=== PATIENT | male | born 1970 | race Caucasian/White ===

== ENCOUNTER 2022-04-05 13:30 | Outpatient (CLI) | payer BC, OTHER, SELFPAY ==
[2022-04-05 17:22] LABS: Albumin* 3.9 g/dL (3.3-5.0); Chloride* 100 mmol/L (96-114)
[2022-04-05 17:23] LABS: Potassium* 4.7 mmol/L (3.6-5.1); Sodium* 136 mmol/L (135-149)
[2022-04-05 17:25] LABS: Aspartate Amino Transferase* 32 U/L (12-35); Bilirubin Total* 0.4 mg/dL (0.1-1.5); Creatinine* 0.8 mg/dL (0.5-1.5); Estimated Glomerular Filt Rate 106 ml/min; Total Protein* 6.6 g/dL (6.0-8.3)
[2022-04-05 17:26] LABS: Alanine Aminotransferase* 36 U/L (4-50); Alkaline Phosphatase* 111 U/L (40-150); Blood Urea Nitrogen* 19 mg/dL (7-30); Calcium* 9.9 mg/dL (8.4-10.6); Glucose* 108 mg/dL (60-115)
[2022-04-05 17:42] LABS: Carbon Dioxide* 26 mmol/L (20-32)
== END 2022-04-05 13:31 | disposition home or self-care (01) ==
LOC: NFLDREF 13:32
PROVIDERS: PCP Internal Medicine; Visit Provider Internal Medicine
DX: B39.9 Histoplasmosis, unspecified (principal); E11.9 Type 2 diabetes mellitus without complications; E78.5 Hyperlipidemia, unspecified; M10.9 Gout, unspecified; I10 Essential (primary) hypertension
CPT/HCPCS: 80053

== ENCOUNTER 2022-09-15 10:05 | Outpatient (CLI) | payer BC, SELFPAY ==
[2022-09-15 13:33] LABS: Albumin* 4.5 g/dL (3.3-5.0); Chloride* 101 mmol/L (96-114); Sodium* 138 mmol/L (135-149)
[2022-09-15 13:34] LABS: Potassium* 4.3 mmol/L (3.6-5.1)
[2022-09-15 13:35] LABS: Cholesterol* 259 mg/dL (90-199)
[2022-09-15 13:36] LABS: Alanine Aminotransferase* 24 U/L (4-50); Alkaline Phosphatase* 51 U/L (40-150); Aspartate Amino Transferase* 26 U/L (12-35); Bilirubin Total* 1.1 mg/dL (0.1-1.5); Blood Urea Nitrogen* 18 mg/dL (7-30); Carbon Dioxide* 30 mmol/L (20-32); Creatinine* 0.9 mg/dL (0.5-1.5); Estimated Glomerular Filt Rate 102 ml/min; Glucose* 105 mg/dL (60-115); Total Protein* 7.2 g/dL (6.0-8.3); Triglycerides* 216 mg/dL (40-149)
[2022-09-15 13:37] LABS: Calcium* 9.7 mg/dL (8.4-10.6); HDL Cholesterol* 50 mg/dL (>=40); LDL Cholesterol Calculated 166 mg/dL (<100)
[2022-09-15 13:58] LABS: Microalbumin Creatinine Ratio 0 mg/g (0-30); Microalbumin Urine < 1 mg/dL
== END 2022-09-15 10:06 | disposition home or self-care (01) ==
PROVIDERS: PCP Internal Medicine; Visit Provider Internal Medicine
DX: E78.5 Hyperlipidemia, unspecified (principal); E11.9 Type 2 diabetes mellitus without complications; I10 Essential (primary) hypertension; M10.9 Gout, unspecified; Z12.5 Encounter for screening for malignant neoplasm of prostate
CPT/HCPCS: 80053; 80061; 82043; 82570; 84153

== ENCOUNTER 2023-03-17 09:13 | Outpatient (CLI) | payer BC, OTHER, SELFPAY | END 2023-03-17 09:14 | disposition home or self-care (01) | LOC: NFLDREF 03-18 00:59 | PROVIDERS: PCP Internal Medicine; Referring Provider Internal Medicine; Visit Provider Internal Medicine | DX: Z00.00 Encounter for general adult medical examination without abnormal findings (principal); E11.9 Type 2 diabetes mellitus without complications; E78.5 Hyperlipidemia, unspecified; I10 Essential (primary) hypertension; M10.9 Gout, unspecified; Z12.5 Encounter for screening for malignant neoplasm of prostate | CPT/HCPCS: 80053; 80061; 82043; 82570; 84153 ==

== ENCOUNTER 2023-11-24 08:36 | Outpatient (CLI) | payer BC, OTHER, SELFPAY ==
--- OUTSIDE RECORDS SUMMARY | 2023-12-01 07:43 | XMS_ITS | Encounter Summary ---
Author Name Unknown Organization [place] Address [address] [place] [address] Care Team Providers Care Lifestyle Consultant Name Role Phone Ky Sears MD Primary Care Provider Jose Slaughter MD Unavailable + Encounter Details Date Type Department Care Team (Late st Contact Info) Description 07/11/[address] [facility] [place] [address] Audrey Peña pulmonary blastomycosis (H); Therapeutic drug monitoring Social History Tobacco Use Types Packs/Day Years Used Date Smoking Tobacco: Never Smokeless Tobacco: Never Alcohol Use Standard Drinks/Week Comments Yes 0 (1 standard drink = 0.6 oz pur e alcohol) social to rare PHQ-2 Answer Date Recorded PHQ-2 Score 0 04/08/2021 Sex and Gender Information Value Date Recorded Sex Assigned at Male 05/05/2022 1:30 PM CDT Gender Identity Male 05/05/2022 1:30 PM CDT Sexual Orientation Straight 05/05/2022 1: 30 PM CDT COVID-19 Exposure Response Date Recorded In the last 10 days, have yo u been in contact with someone who was confirmed or suspected to have Coronavirus/COVID-19? No / Unsure 07/11/2022 8:14 AM PROCUREMENT SPECIALIST documented as of this encounter Plan of Treatment Not on file documented as of this encounter Procedures Procedure Name Priority Date/Time Associated Diagnosis Comments VORICONAZOLE LEVEL Routine 07/11/2022 8: 45 AM PROCUREMENT SPECIALIST [place] pulmonary blastomycosis (H) Therapeutic drug monitoring LIPID PROFILE Routine 07/11/2022 8:45 AM PROCUREMENT SPECIALIST [place] pulmonary blastomycosis (H) Therapeutic drug monitoring HEMOGLOBIN A1C Routine 07/11/2022 8:45 AM PROCUREMENT SPECIALIST [place] pulmonary blastomycosis (H) Therapeutic drug monitoring documented in this encounter Results * (ABNORMAL) Lipid Profile (07/11/2022 8:45 AM PROCUREMENT SPECIALIST) Cholesterol 203(H) <=199 mg/dL 07/11/2022 10:45 AM [facility] Triglycerides 98 <=149 mg/dL 07/11/2022 10:[address] [facility] Direct Measure HDL 67 >=40 mg/dL 07/11/2022 10:45 AM [facility] Comment: HDL Cholesterol Reference Range: 0-2 years: No reference ranges established for patients under 2 years old ??at [facility] for lipid analytes. 2-8 years: Greater than 45 mg/dL 18 years and older: Female: Greater than or equal to 50 mg/dL Male: ?? Greater than or equal to 40 mg/dL LDL Cholesterol Calculated 116 <=129 mg/dL 07/11/2022 10:45 AM [facility] Patient Fasting > 8hrs? Yes 07/11/2022 10:45 AM [facility] Blood STRUCTURE OF LEFT UPPER LIMB / Unknown Venipuncture / Unknown 07/11/2022 8:45 AM PROCUREMENT SPECIALIST 07/11/2022 8:46 AM PROCUREMENT SPECIALIST Yunior Wayne MD LAB - BLOOD ORDERABL ES [facility] [address] [place] [address], [facility] [phone] * Hemoglobin A1c (07/11/2022 8:45 AM PROCUREMENT SPECIALIST) Hemoglobin A1C 5.4 <5.7 % 07/11/2022 11:45 AM [facility] Comment: Normal <5.7% Prediabetes 5.7-6.4% ?? Diabetes 6.5% or higher Note: Adopted from ADA consensus guidelines. Blood STRUCTURE OF LEFT UPPER LIMB / Unknown Venipuncture / Unknown 07/11/2022 8:45 AM PROCUREMENT SPECIALIST 07/11/2022 8:46 AM PROCUREMENT SPECIALIST Yunior Wayne MD LAB - BLOOD ORDERABL ES N LABORATORY [facility] [address] [place] [address], [facility] [phone] * (ABNORMAL) Voriconazole Level (07/11/2022 8:45 AM PROCUREMENT SPECIALIST) Voriconazole <0.1(L) 1.0 - 5.5 ug/mL 07/12/2022 1:16 PM PROCUREMENT SPECIALIST [facility] Blood STRUCTURE OF LEFT UPPER LIMB / Unknown Venipuncture / Unknown 07/11/2022 8:45 AM PROCUREMENT SPECIALIST 07/11/2022 8:46 AM PROCUREMENT SPECIALIST Yunior Wayne MD LAB - BLOOD ORDERABL ES [facility] [address] [phone], [facility] [phone] documented in this encounter Visit Diagnoses Diagnosis [place] pulmonary blastomycosis (H24) Blastomycosis Therapeutic drug monitoring Encounter for therapeutic drug monitoring documented in this encounter Care Teams Lifestyle Consultant Relationship Specialty Start Date End Date Ky Sears MD [facility] [address] [place] [address] PCP - General Emergency Medicine 04/05/21 Jose Slaughter MD [address] [place] [address] Assigned Musculoskeletal Provider 04/11/21 10/14/22 documented as of this encounter
--- OUTSIDE RECORDS SUMMARY | 2023-12-01 07:43 | XMS_ITS | Referral Summary ---
Author Name Unknown Organization [place] Address [address] [place] [id number] Care Team Providers Care Inspector Brake Lining Name Role Phone Ky Sears MD Primary Care Provider Encounters Date Type Department Care Team Description 11/03/2023 Travel 11/03/2023 9:15 AM CDT Lab [facility] [place] [address] Pulmonary blastomycosis, unspecified (H24) (Primary Dx) 10/20/2023 Telephone [facility] [address] [place] [address] Anthony Oates MD from Last 3 Months Allergies Active Allergy Reactions Criticality Noted Date Comments Allopurinol Unknown 12/30/2009 Stomach cramping Other reaction(s): *Unknown Stomach cramping Stomach cramping Penicillin V 06/17/2009 Airway closed up Has tolerated ceftriaxone Medications Medication Sig Dispensed Refills Start Date End Date Status febuxostat (ULORIC) 40 MG TABSIndications:Gout Take 1 tablet by mouth daily. 30 tablet 0 02/13/2012 Active sertraline (ZOLOFT) 50 MG tablet Take 50 mg by mouth daily 03/22/2021 Active [place]-3 Fatty Acids (FISH OIL PO) Take 1,000 mg by mouth daily (with lunch) Active Multiple Vitamin (ONE-A-DAY MENS PO) Take 1 tablet by mouth daily (with lunch) Active metFORMIN (GLUCOPHAGE) 500 MG tablet Take 500 mg by mouth 2 times daily (with meals) Active amLODIPine (NORVASC) 5 MG tabletIndications:Pneu monia of both lungs due to infectious organism, unspecified part of lung Take 1 tablet (5 mg) by mouth daily 30 tablet 6 03/29/2022 Active itraconazole (SPORANOX) 10 MG/ML solutionIndications:Bl astomycosis Take 20 mLs (200 mg) by mouth 2 times daily 1200 mL 05/29/2023 Active Active Problems Problem Noted Date Diagnosed Date Bilateral pleural effusion 05/25/2023 Pneumonia due to infectious organism, unspecified laterality, unspecified part of lung 05/25/2023 Pericardial effusion 05/25/2023 Failure of outpatient treatment 03/07/2022 Pneumonia of both lungs due to infectious organism, unspecified part of lung 03/07/2022 Hypertension goal BP (blood pressure) < 140/90 0 11/16/2010 HYPERLIPIDEMIA LDL GOAL <130 06/13/2010 Gout 08/29/2009 Resolved Problems Problem Noted Date Diagnosed Date Resolved Date Dyslipidemia 07/27/2010 Immunizations Name Administration Dates Next Due COVID-19 Bivalent 18+ (Moderna) 06/18/2022 COVID-19 Monovalent 18+ (Moderna) 12/20/2020,06/2021 Influenza Vaccine >6 months,quad, PF 06/18/2022 TD,PF 7+ (Tenivac) 06/17/2004 Social History Tobacco Use Types Packs/Day Years Used Date Smoking Tobacco: Never Smokeless Tobacco: Never Alcohol Use Standard Drinks/Week Comments Yes 0 (1 standard drink = 0.6 oz pur e alcohol) social to rare PHQ-2 Answer Date Recorded PHQ-2 Score 0 04/08/2021 Adolescent Education Answer Date Record ed Getting School Help Needed Not on file 05/13 Sex and Gender Information Value Date Recorded Sex Assigned at Male 05/05/2022 1:30 PM CDT Gender Identity Male 05/05/2022 1:30 PM CDT Sexual Orientation Straight 05/05/2022 1: 30 PM CDT Last Filed Vital Signs Vital Sign Reading Time Taken Comments Blood Pressure 114/80 05/29/2023 6:05 AM CDT Pulse 75 05/29/2023 6:05 AM CDT Temperature 36.7 ??C (98 ??F) 05/29/2023 6:05 AM CDT Respiratory Rate 20 05/29/2023 6:05 AM CDT Oxygen Saturation 97% 05/29/2023 6:05 AM CDT Inhaled Oxygen Concentration - - Weight 93.3 kg (205 lb 11 oz) 05/25/2023 4:16 PM CDT Height 182.9 cm (6') 05/27/2023 11:04 AM CDT Body Mass Index 27.9 05/25/2023 4:16 PM CDT Plan of Treatment Not on file Procedures Procedure Name Priority Date/Time Associated Diagnosis Comments HEPATIC FUNCTION PANEL Routine 11/03/2023 9:15 AM CDT Pulmonary blastomycosis, unspecified (H24) ITRACONAZOLE AND METABOLITE Routine 11/03/2023 9:15 AM CDT Pulmonary blastomycosis, unspecified (H24) GLUCOSE BY METER Routine 05/29/2023 1:48 AM CDT BASIC METABOLIC PANEL Routine 05/28/2023 6:51 AM CDT LIPID PROFILE Routine 07/11/2022 8:45 AM 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 [place] pulmonary blastomycosis (H) Therapeutic drug monitoring HEPATITIS C SCREEN REFLEX TO HCV RNA QUANT AND GENOTYPE Routine 03/13/2022 6:33 AM CDT HIV ANTIGEN ANTIBODY COMBO Add-On 03/12/2022 7:28 AM CDT ALBUMIN RANDOM URINE QUANTITATIVE Routine 01/28/2011 8:13 AM CDT Hypertension goal BP (blood pressure) < 140/90 from Last 3 Months or Most Recently Relevant to Health Maintenance Results * Itraconazole and Metabolite (11/03/2023 9:15 AM CDT) Itracanazole 1.5 0.5 - 5.0 ug/mL 11/06/2023 12:39 PM CDT [facility] Hydroxyitraconazole 2.5 ug/mL 11/05 12:39 PM CDT [facility] Comment: No therapeutic range is established for hydroxyitraconazole. Hydroxyitraconazole is an active metabolite that has comparable activity to the parent drug itraconazole. Itraconazole and Metabolite Total 4.0 <=10.0 ug/mL 11/06/2023 12:39 PM CDT [facility] Comment:The clinical practic e guidelines for the management of blastomycosis by the Infectious Diseases Society of [place] recommends that combined itraconazole and hydroxyitraconazole concentrations should not exceed 10 ug/mL due to potential toxicity. Blood BLOOD SPECIMEN / Unknown Venipuncture / Unknown 11/03/2023 9:15 AM CDT 11/03/2023 9:15 AM CDT Narrative [facility] - 11/06/2023 12:39 PM CDT This test was developed and its performance characteristics determined by the [facility], ??Special Chemistry Laboratory. It has not been cleared or approved by the FDA. The laboratory is regulated under CLIA as qualified to perform high-complexity testing. This test is used for clinical purposes. It should not be regarded as investigational or for research. Yunior Wayne MD LAB - BLOOD ORDERABL ES [facility] Special Drug/[facility] [address] [facility], [address] [place] [address] * Hepatic function panel (11/03/2023 9:15 AM CDT) [facility] Protein Total 6.6 6.4 - 8.3 g/dL 11/03/2023 9:36 AM CDT [facility] Albumin 4.3 3.5 - 5.2 g/dL 11/03/2023 9:36 AM CDT [facility] Bilirubin Total 1.1 <=1.2 mg/dL 11/03/2023 9:36 AM CDT [facility] Alkaline Phosphatase 78 40 - 150 U/L 11/03/2023 9:36 AM CDT [facility] Comment:Reference intervals for this test were updated on 06/27/2023 to more accurately reflect our healthy population. There may be differences in the flagging of prior results with similar values performed with this method. Interpretation of those prior results can be made in the context of the updated reference intervals. AST 17 0 - 45 U/L 11/03/2023 9:36 AM CDT [facility] Comment:Reference intervals for this test were updated on 01/23/2023 to more accurately reflect our healthy population. There may be differences in the flagging of prior results with similar values performed with this method. Interpretation of those prior results can be made in the context of the updated reference intervals. ALT 10 0 - 70 U/L 11/03/2023 9:36 AM CDT [facility] Comment:Reference intervals for this test were updated on 01/23/2023 to more accurately reflect our healthy population. There may be differences in the flagging of prior results with similar values performed with this method. Interpretation of those prior results can be made in the context of the updated reference intervals. Bilirubin Direct 0.23 0.00 - 0.30 mg/dL 11/03/2023 9:36 AM CDT [facility] Blood BLOOD SPECIMEN / Unknown Venipuncture / Unknown 11/03/2023 9:15 AM CDT 11/03/2023 9:15 AM CDT Yunior Wayne MD LAB - BLOOD ORDERABL ES [facility] [address] [place] [address], [place] * Glucose by meter (05/29/2023 1:48 AM CDT) [facility] GLUCOSE BY METER POCT 98 70 - 99 mg/dL 05/29/2023 1:55 AM CDT LABORATORY POC Blood, Capillary BLOOD SPECIMEN / Unknown 05/29/2023 1:48 AM CDT 05/29/2023 1:55 AM CDT Jonh Sinclair MD LAB - BEAKER POCT LABORATORY POC [facility] [address] [facility] Lab (1st floor, no room number) [place] [address], [place] [phone] * (ABNORMAL) Basic metabolic panel (05/28/2023 6:51 AM CDT) Sodium 137 135 - 145 mmol/L 05/28/2023 7:38 AM CDT LABORATORY Comment:Reference intervals for this test were updated on 05/09/2023 to more accurately reflect our healthy population. There may be differences in the flagging of prior results with similar values performed with this method. Interpretation of those prior results can be made in the context of the updated reference intervals. Potassium 3.9 3.4 - 5.3 mmol/L 05/28/2023 7:38 AM CDT LABORATORY Chloride 99 98 - 107 mmol/L 05/28/2023 7:38 AM CDT LABORATORY Carbon Dioxide (CO2) 26 22 - 29 mmol/L 05/28/2023 7:38 AM CDT LABORATORY Anion Gap 12 7 - 15 mmol/L 05/28/2023 7:38 AM CDT LABORATORY Urea Nitrogen 9.4 6.0 - 20.0 mg/dL 05/28/2023 7:38 AM CDT LABORATORY Creatinine 0.91 0.67 - 1.17 mg/dL 05/28/2023 7:38 AM CDT LABORATORY GFR Estimate >90 >60 mL/min/1. 73m2 05/28/2023 7:38 AM CDT LABORATORY Calcium 9.5 8.6 - 10.0 mg/dL 05/28/2023 7:38 AM CDT LABORATORY Glucose 119(H) 70 - 99 mg/dL 05/28/2023 7:38 AM CDT LABORATORY Blood STRUCTURE OF RIGHT UPPER LIMB / Unknown Venipuncture / Unknown 05/28/2023 6:51 AM CDT 05/28/2023 7:14 AM CDT Abiodun Quinonez MD LAB - BLOOD ORDERABL ES LABORATORY [facility] [address] [facility] Lab (1st floor, no room number) [place] [address], [facility] [phone] * (ABNORMAL) Lipid Profile (07/11/2022 8:45 AM 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) Cholesterol 203(H) <=199 mg/dL 07/11/2022 10:45 AM [facility] Triglycerides 98 <=149 mg/dL 07/11/2022 10:45 AM [facility] Direct Measure HDL 67 >=40 mg/dL 07/11/2022 10:45 AM [facility] Comment: HDL Cholesterol Reference Range: 0-2 years: No reference ranges established for patients under 2 years old ??at [facility] for lipid analytes. 2-8 years: Greater than 45 mg/dL 18 years and older: Female: Greater than or equal to 50 mg/dL Male: ?? Greater than or equal to 40 mg/dL LDL Cholesterol Calculated 116 <=129 mg/dL 07/11/2022 10:45 AM [facility] Patient Fasting > 8hrs? Yes 07/11/2022 10:45 AM [facility] Blood STRUCTURE OF LEFT UPPER LIMB / Unknown Venipuncture / Unknown 07/11/2022 8:45 AM 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 07/11/2022 8:46 AM 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 Yunior Wayne MD LAB - BLOOD ORDERABL ES [facility] [address] [place] [address], [facility] [phone] * Hepatitis C Screen Reflex to HCV RNA Quant and Genotype (03/13/2022 6:33 AM CDT) Hepatitis C Antibody Nonreactive Nonreactive 03/14/2022 9:13 AM CDT [facility] DO Blood STRUCTURE OF LEFT UPPER LIMB / Unknown Venipuncture / Unknown 03/13/2022 6:33 AM CDT 03/13/2022 7:02 AM CDT Narrative [facility]O - 03/14/2022 9:13 AM CDT Assay performance characteristics have not been established for newborns, infants, and children. Vianey Abreu MD LAB - BLOOD ORDER JANIYA [facility]/ENDO [facility] Core/Prot/Endo [address] [facility] [address] [facility], [address] [phone] * HIV Antigen Antibody Combo (03/12/2022 7:28 AM CDT) HIV Antigen Antibody Combo Nonreactive Nonreactive 03/14/2022 9:24 AM CDT SPECIALTY CORE/PROT/EN DO Comment:HIV-1 p24 Ag & HIV-1 /HIV-2 Ab Not Detected Blood STRUCTURE OF LEFT UPPER LIMB / Unknown Venipuncture / Unknown 03/12/2022 7:28 AM CDT 03/12/2022 8:00 AM CDT Vianey Abreu MD LAB - BLOOD ORDER JANIYA SPECIALTY CORE/PROT/ENDO Specialty Core/Prot/Endo [address] [facility] [address] [facility], [address] [phone] * Microalbumin quantitative random urine (01/28/2011 8:13 AM CDT) Creatinine Urine 160 mg/dL [facility] Albumin Urine mg/L 2 mg/L [facility] Albumin Urine mg/g Cr 1.25 0 - 20 mg/g Cr [facility] Urine specimen (specimen) 01/28/2011 8:13 AM CDT 01/28/2011 8:14 AM CDT Irena Garcia PA-C LAB - UR INE ORDERABLES [facility] from Last 3 Months or Most Recently Relevant to Health Maintenance Advance Directives For more information, please contact: [phone] * Full Code (Latest Code Status on File) Date Activated Date Inactivated Comments 05/25/2023 7:28 PM 05/29/2023 4:54 PM All basic and advanced life-sustaining interventions are performed as appropriate Question Answer Comments Code status determined by: Discussion with kiersten nt/ legal decision maker * Full Code Date Activated Date Inactivated Comments 03/07/2022 11:08 PM 03/28/2022 7:54 PM All basic a nd advanced life-sustaining interventions are performed as appropriate Question Answer Comments Code status determined by: Discussion with saidae nt/ legal decision maker Care Teams Inspector Brake Lining Relationship Specialty Start Date End Date Ky Sears MD [facility] [address] [place] [address] PCP - General Emergency Medicine 04/05/21
--- OUTSIDE RECORDS SUMMARY | 2023-12-01 07:43 | XMS_ITS | Encounter Summary ---
Author Name Unknown Organization [facility] Address [address] [place] [address] Phone Care Team Providers Care Mold Chipper Name Role Phone Ky Georges MD Primary Care Provider [phone] Reason for Visit * Reason Comments pulmonary blasto Encounter Details Date Type Department Care Team (Latest Contact Info) Description 11/28/2023 10:40 AM MDT Office Visit [facility] [address] [place], [place] [phone] Yunior Patel MD [address] [facility] [address] [place], [place] [phone] Chronic pulmonary blastomycosis (CMS-HCC) (Primary Dx) Social History Tobacco Use Types Packs/Day Years Used Date Smoking Tobacco: Never Smokeless Tobacco: Never Tobacco Cessation:Counseling Given: Not Answered Alcohol Use Standard Drinks/Week Comments Yes 0 (1 standard drink = 0.6 oz pur e alcohol) 4-5 drinks per week Sex and Gender Information Value Date Recorded Sex Assigned at Not on file Gender Identity Not on file Sexual Orientation Not on file documented as of this encounter Last Filed Vital Signs Vital Sign Reading Time Taken Comments Blood Pressure 128/79 11/28/2023 10:41 AM CDT Pulse 75 11/28/2023 10:41 AM CDT Temperature 37.1 ??C (98.8 ??F) 11/28/2023 10:41 AM C DT Respiratory Rate - - Oxygen Saturation - - Inhaled Oxygen Concentration - - Weight 91.6 kg (202 lb) 11/28/2023 10:41 AM CDT Height - - Body Mass Index 27.4 06/20/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 Primary care physician : KY GEORGES MD Referring Physician : No care manufacturing team member to display Date of consult : 11/29/23 Subjective History of Present Illness: Akhil Hess is a 52 y.o. male presenting with Follow-up visit with his presumed blastomycosis. Patient is generally done well over the last several months. Tolerated the itraconazole without obvious side effects or problems. Has had labs done and the levels were in the normal range and no LFT abnormalities. He is developed a bit of reflux recently and some slight fatigue. Does not have any significant respiratory symptoms or cough. Had a follow-up CT scan that looked excellent.. Review of Systems Constitutional: Slight fatigue recently in the last week without other symptoms. No respiratory symptoms. Some reflux symptoms intermittently. Current Outpatient Medications Medication Sig Dispense Refill amLODIPine (NORVASC) 5 MG tablet Take 5 mg by mouth daily aspirin 81 MG chewable tablet Chew 81 mg 1 (one) time each day Febuxostat (ULORIC) 40 MG tablet Take 40 mg by mouth daily itraconazole (SPORANOX) 100 MG capsule Take 2 capsules (200 mg total) by mouth in the morning and 2capsules (200 mg total) in the evening. 360 capsule 0 metFORMIN (GLUCOPHAGE) 500 MG tablet Take 500 mg by mouth 2 times daily MULTIPLE VITAMIN PO Take 1 tablet by mouth in the morning. sertraline (ZOLOFT) 50 MG tablet Take 50 mg by mouth daily No current facility-administered medications for this visit. Patient Active Problem List Diagnosis Gout Hyperlipidemia Hypertensive disorder Infective pneumonia Acute bronchitis Chronic sinusitis Diabetes mellitus ([facility]-H[facility]) Disorder of nasal sinus Allergies Allergen Reactions Allopurinol Other reaction(s): *Unknown Stomach cramping Stomach cramping Penicillins Other reaction(s): *Unknown - Childhood Rxn Airway closed up No family history on file. Social History Tobacco Use Smoking status: Never Smokeless tobacco: Never Substance Use Topics Alcohol use: Yes Comment: 4-5 drinks per week Drug use: Never Objective BP 128/79 Pulse 75 Temp 98.8 ??F (37.1 ??C) Wt 202 lb (91.6 kg) BMI 27.40 kg/m?? BSA 2.16m?? Synopsis No data to display Physical Exam Vitals and nursing note reviewed. Constitutional: Appearance: He is well-developed and well-nourished. Comments: Looks completely well on exam no obvious abnormality Assessment/Plan IMP 1 52-year-old male, prior proven blastomycosis then recurrent symptoms late 2022 with both imaging and clinical picture suggesting recurrent blastomycosis and failure of therapy, did not prove that diagnosis with labs or culture but initiated extended itraconazole therapy which has been on withresolution of symptoms, improvement of imaging and thus presumptive diagnosis of relapsed blastomycosis remains in place REC 1 continue itraconazole at least to the 1 year gennaro, prior repeat labs again in a few months. Repeat imaging at completion of therapy but not before unless issues 2 mild reflux symptoms try to avoid acid reducing agents but if needed is far away from the itraconazole doses as possible use Tums or similar No orders of the defined types were placed in this encounter. YUNIOR PATEL MD documented in this encounter Plan of Treatment Not on file documented as of this encounter Visit Diagnoses Diagnosis Chronic pulmonary blastomycosis (CMS-HCC)- Primary documented in this encounter Care Teams Mold Chipper Relationship Specialty Start Date End Date Ky Georges MD [address] [place] [address] PCP - General 03/08/22 documented as of this encounter
--- OUTSIDE RECORDS SUMMARY | 2023-12-01 07:43 | XMS_ITS | Encounter Summary ---
Author Name Unknown Organization [facility] sanchez Address [address] [place] [address] Phone Care Team Providers Care Back Digger Operator Name Role Phone Ky Sears MD Primary Care Provider Encounter Details Date Type Department Care Team (Late st Contact Info) Description 10/16/2023 Telephone [employer] [employer] [address] [place] [address] Crystal Cross RN Social History Tobacco Use Types Packs/Day Years Used Date Smoking Tobacco: Never Smokeless Tobacco: Never Alcohol Use Standard Drinks/Week Comments Yes 0 (1 standard drink = 0.6 oz pur e alcohol) 4-5 drinks per week Sex and Gender Information Value Date Recorded Sex Assigned at Not on file Gender Identity Not on file Sexual Orientation Not on file documented as of this encounter Miscellaneous Notes * Telephone Encounter - Crystal Cross RN - 10/19/2023 10:53 AM INFECTION CONTROL PRACTITIONER Akhil called back Explained that after his last visit with Dr Wayne he had wanted some labs and a repeat CT done Akhil will go to [facility] outpatient lab at the [facility] and he would like his CT done at [facility]. Will fax the orders to those locations. Patient will be leaving the country on 10/22/23 for a week and a half He will be able to complete these when he is back in [place]. * Telephone Encounter - Crystal Cross RN - 10/16/2023 2:15 PM CST Call to patient in response to refill request from [facility] Left message on identified voicemail for Akhil to call back regarding Dr Wayne last visit notes 06/20/23 Lab, CT, and follow up visit. documented in this encounter Plan of Treatment Not on file documented as of this encounter Visit Diagnoses Not on filedocumented in this encounter Care Teams Back Digger Operator Relationship Specialty Start Date End Date Ky Sears MD [address] [place] [address] PCP - General 03/08/22 documented as of this encounter
--- OUTSIDE RECORDS SUMMARY | 2023-12-01 07:43 | XMS_ITS | Encounter Summary ---
Author Name Unknown Organization [facility] Address [address] [place] [address]. [place] [address] Care Team Providers Care Dental Coordinator Name Role Phone Ky Sears MD Primary Care Provider Jose Slaughter MD Unavailable + Encounter Details Date Type Department Care Team (Late st Contact Info) Description 04/19/2022 Orders Only [facility] [address] [place] [address] Yunior Wayne MD [facility] [address] [place] [address]. [address] [place] [address] Blastomycosis (Primary Dx) Social History Tobacco Use Types [...] suspected to have Coronavirus/COVID-19? No / Unsure 04/20/2022 8:43 AM CDT documented as of this encounter Plan of Treatment Not on file documented as of this encounter Results * Voriconazole Level (04/20/2022 8:54 AM CDT) Voriconazole 1.0 1.0 - 5.5 ug/mL 04/21/2022 10:46 AM CDT [facility] Blood STRUCTURE OF LEFT UPPER LIMB / Unknown Venipuncture / Unknown 04/20/2022 8:54 AM CDT 04/20/2022 8:55 AM CDT Yunior Wayne MD LAB - BLOOD ORDERABL ES [facility] [address] [facility], [address] [address] [phone] * AST (04/20/2022 8:54 AM CDT) AST 16 0 - 40 U/L 04/20/2022 9:20 AM CDT [facility] Blood STRUCTURE OF LEFT UPPER LIMB / Unknown Venipuncture / Unknown 04/20/2022 8:54 AM CDT 04/20/2022 8:55 AM CDT Yunior Wayne MD LAB - BLOOD ORDERABL ES [facility] [address] [facility] [place], [place] [address] [phone] * Creatinine (04/20/2022 8:54 AM CDT) Creatinine 0.81 0.70 - 1.30 mg/dL 04/20/2022 9:20 AM CDT [facility] GFR Estimate >90 >60 mL/min/1.7 3m2 04/20/2022 9:20 AM CDT [facility] Comment:Effective July 152020 eGFRcr in adults is calculated using the 2020 CKD-EPI creatinine equation which includes age and gender (Supervisor Quilting et al., NEJ, DOI: 10.1056/NLSTef4092585) Blood STRUCTURE OF LEFT UPPER LIMB / Unknown Venipuncture / Unknown 04/20/2022 8:54 AM CDT 04/20/2022 8:55 AM CDT Yunior Wayne MD LAB - BLOOD ORDERABL ES Performing Organization Address City/[facility]/ZIP Co de Phone Number [facility] [address] [place], [place] [address] [address], [facility] [phone] * (ABNORMAL) Erythrocyte sedimentation rate auto (04/20/2022 8:54 AM CDT) Erythrocyte Sedimentation Rate 23(H) 0 - 15 mm/hr 04/20/2022 9:41 AM CDT [facility] Blood STRUCTURE OF LEFT UPPER LIMB / Unknown Venipuncture / Unknown 04/20/2022 8:54 AM CDT 04/20/2022 8:55 AM CDT Yunior Wayne MD LAB - BLOOD ORDERABL ES Performing Organization Address [facility]/ZIP Co de Phone Number [facility] [address] [place] [address], [facility] [phone] * CRP inflammation (04/20/2022 8:54 AM CDT) CRP 0.4 0.0 - <0.8 mg/dL 04/20/2022 9:20 AM CDT [facility] Blood STRUCTURE OF LEFT UPPER LIMB / Unknown Venipuncture / Unknown 04/20/2022 8:54 AM CDT 04/20/2022 8:55 AM CDT Yunior Wayne MD LAB - BLOOD ORDERABL ES Performing Organization Address City/[facility]/ZIP Co de Phone Number [facility] [address] [place] [place] [address], [facility] [phone] documented in this encounter Visit Diagnoses Diagnosis Blastomycosis- Primary documented in this encounter Care Teams Dental Coordinator Relationship Specialty Start Date End Date Ky Sears MD [address] [address] PCP - General Emergency Medicine 04/05/21 Jose Slaughter MD [address] [place] [address] Assigned Musculoskeletal Provider 04/11/21 10/14/22 documented as of this encounter
--- OUTSIDE RECORDS SUMMARY | 2023-12-01 07:43 | XMS_ITS | Encounter Summary ---
Author Name Unknown Organization [place] Address [address] [place] [address] Care Team Providers Care Cooler Man Name Role Phone Ky Sears MD Primary Care Provider Encounter Details Date Type Department Care Team (Late st Contact Info) Description 11/03/2023 9:15 AM CDT Lab [facility] [place] [phone] Pulmonary blastomycosis, unspecified (H24) (Primary Dx) Social History Tobacco Use Types [...] Orientation Straight 05/05/2022 1: 30 PM CDT documented as of this encounter Plan of Treatment Not on file documented as of this encounter Procedures Procedure Name Priority Date/Time Associated Diagnosis Comments ITRACONAZOLE AND METABOLITE Routine 11/03/2023 9:15 AM CDT Pulmonary blastomycosis, unspecified (H24) HEPATIC FUNCTION PANEL Routine 11/03/2023 9:15 AM CDT Pulmonary blastomycosis, unspecified (H24) documented in this encounter Results * Itraconazole and Metabolite (11/03/2023 9:15 AM CDT) Itracanazole 1.5 0.5 - 5.0 ug/mL 11/06/2023 12:39 PM CDT [facility] Hydroxyitraconazole 2.5 ug/mL 11/05 12:39 PM CDT [facility] Comment: No therapeutic range is established for hydroxyitraconazole. Hydroxyitraconazole is an active metabolite that has comparable activity to the parent drug itraconazole. Itraconazole and Metabolite Total 4.0 <=10.0 ug/mL 11/06/2023 12:39 PM CDT [facility] Comment:The clinical practic e guidelines for the management of blastomycosis by the Infectious Diseases Society of [place] recommends that combined itraconazole and hydroxyitraconazole concentrations should not exceed 10 ug/mL due to potential toxicity. Blood BLOOD SPECIMEN / Unknown Venipuncture / Unknown 11/03/2023 9:15 AM CDT 11/03/2023 9:15 AM CDT Narrative [facility] - 11/06/2023 12:39 PM CDT This test was developed and its performance characteristics determined by the [facility], ??Special Chemistry Laboratory. It has not been cleared or approved by the FDA. The laboratory is regulated under CLIA as qualified to perform high-complexity testing. This test is used for clinical purposes. It should not be regarded as investigational or for research. Yunior Wayne MD LAB - BLOOD ORDERABL ES [facility] [address] [facility], [address] [place] [address], [facility] * Hepatic function panel (11/03/2023 9:15 AM CDT) Protein Total 6.6 6.4 - 8.3 g/dL 11/03/2023 9:36 AM CDT [facility] Albumin 4.3 3.5 - 5.2 g/dL 11/03/2023 9:36 AM CDT [facility] Bilirubin Total 1.1 <=1.2 mg/dL 11/03/2023 9:36 AM CDT [facility] Alkaline Phosphatase 78 40 - 150 U/L 11/03/2023 9:36 AM CDT [facility] Comment:Reference intervals for this test were updated on 06/27/2023 to more accurately reflect our healthy population. There may be differences in the flagging of prior results with similar values performed with this method. Interpretation of those prior results can be made in the context of the updated reference intervals. AST 17 0 - 45 U/L 11/03/2023 9:36 AM T [facility] Comment:Reference intervals for this test were updated on 01/23/2023 to more accurately reflect our healthy population. There may be differences in the flagging of prior results with similar values performed with this method. Interpretation of those prior results can be made in the context of the updated reference intervals. ALT 10 0 - 70 U/L 11/03/2023 9:36 AM T [facility] Comment:Reference intervals for this test were updated on 01/23/2023 to more accurately reflect our healthy population. There may be differences in the flagging of prior results with similar values performed with this method. Interpretation of those prior results can be made in the context of the updated reference intervals. Bilirubin Direct 0.23 0.00 - 0.30 mg/dL 11/03/2023 9:36 AM T [facility] Blood BLOOD SPECIMEN / Unknown Venipuncture / Unknown 11/03/2023 9:15 AM CDT 11/03/2023 9:15 AM CDT Yunior Wayne MD LAB - BLOOD ORDERABL ES [facility] [address] [facility] [place] [address], [facility] documented in this encounter Visit Diagnoses Diagnosis Pulmonary blastomycosis, unspecified (H24)- Primary documented in this encounter Care Teams Cooler Man Relationship Specialty Start Date End Date Ky Sears MD [facility]NOTE 3] [address] [place] [address] PCP - General Emergency Medicine 04/05/21 documented as of this encounter
--- OUTSIDE RECORDS SUMMARY | 2023-12-01 07:43 | XMS_ITS | Encounter Summary ---
Author Name Unknown Organization [place] Address [facility] [place] [address] Care Team Providers Care Marine Engine Machinist Apprentice Name Role Phone Ky Sears MD Primary Care Provider Encounter Details Date Type Department Care Team (Late st Contact Info) Description 10/20/2023 Telephone [facility] [place] [phone] [facility] [address] [place] [phone] Anthony Oates MD [address] [facility] [address] [place], [place] [address] Social History Tobacco Use Types Packs/Day Years [...] on filedocumented in this encounter Care Teams Marine Engine Machinist Apprentice Relationship Specialty Start Date End Date Ky Sears MD [facility] [address] [place] [address] PCP - General Emergency Medicine 04/05/21 documented as of this encounter
--- OUTSIDE RECORDS SUMMARY | 2023-12-01 07:43 | XMS_ITS | Encounter Summary ---
Author Name Unknown Organization [facility] Address [address] [place] [address]. [place] [address] Care Team Providers Care Comic Book Artist Name Role Phone Ky Sears MD Primary Care Provider Encounter Details Date Type Department Care Team (Latest Contact Info) Description 11/03/2023 Travel Social History Tobacco Use Types Packs/Day Years [...] on filedocumented in this encounter Care Teams Comic Book Artist Relationship Specialty Start Date End Date Ky Sears MD [facility] [address] [place] [address] PCP - General Emergency Medicine 04/05/21 documented as of this encounter
--- OUTSIDE RECORDS SUMMARY | 2023-12-01 07:43 | XMS_ITS | Clinical Summary ---
Author Name Unknown Organization [facility] Address [address] [place] [address] Care Team Providers Care Hedis Review Nurse Name Role Phone Ky Sears MD Primary Care Provider Allergies Active Allergy Reactions Criticality Noted Date [...] 50 mg by mouth daily 03/22/2021 Active [place]-3 Fatty Acids (FISH OIL PO) Take 1,000 [...] Date Diagnosed Date Resolved Date Dyslipidemia 07/27/2010 Encounters Date Type Department Care Team Description 11/03/2023 9:15 AM CDT Lab [facility] [address] [place] [address] Pulmonary blastomycosis, unspecified (H24) (Primary Dx) 11/03/2023 Travel 10/20/2023 Telephone [facility] [address] [place] [address] Anthony Oates MD from Last 3 Months Immunizations Name Administration Dates Next Due COVID-19 Bivalent 18+ (Moderna) 06/18/2022 COVID-19 Monovalent 18+ (Moderna) 12/20/2020,06/2021 Influenza Vaccine >6 months,quad, PF 06/18/2022 TD,PF 7+ (Tenivac) 06/17/2004 Family History Medical History Relation Comments Diabetes Father Heart Disease Father stroke, heart at tack at age of 68 Hypertension Father Lipids Father Eye Disorder Maternal Grandmother Hypertension Mother Lipids Mother Heart Disease Paternal Grandfather not sure ab out details Heart Disease Paternal Grandmother not sure ab out details Cancer - colorectal No family hx of Prostate Cancer No family hx of Relation Status Comments Father Alive Maternal Grandfather Maternal Grandmother Mother Alive Paternal Grandfather Paternal Grandmother Sister Alive Social History Tobacco Use Types Packs/Day Years [...] 05/25/2023 4:16 PM CDT Plan of Treatment Health Maintenance Due Date Last Done Comments ADVANCE CARE PLANNING 1968 ANNUAL REVIEW OF HM ORDERS 1968 CT COLONOGRAPHY 1968 FIT 1968 FLEX SIG 1968 sDNA (Cologuard) 1968 COLONOSCOPY 1978 COLORECTAL CANCER SCREENING 1978 YEARLY PREVENTIVE VISIT 12/30/2010 12/30/2009 MICROALBUMIN 01/29/2012 01/28/2011, 12/30/2009 ZOSTER IMMUNIZATION (1 of 2) 2018 HEPATITIS B IMMUNIZATION (2 of 2 - CpG 2-dose series) 06/14/2023 05/17/2023 LIPID 07/11/2023 07/11/2022, 01/12, 12/30/2009 PHQ-2 (once per calendar year) 2023 04/08/2021 BMP 05/28/2024 05/28/2023, 03/14, 03/27/2022, Additional history exists GLUCOSE 05/29/2026 05/29/2023, 05/14, 05/29/2023, Additional history exists DTAP/TDAP/TD IMMUNIZATION (5 - Td or Tdap) 02/17/2028 02/16/2018, 02/16/2018, 01/20/2018, Additional history exists HIV SCREENING Completed 03/12/2022 HEPATITIS C SCREENING Completed 03/13/2022 COVID-19 Vaccine Completed 05/17/2023, 12/2021, 06/18/2022, Additional history exists INFLUENZA VACCINE Completed 05/17/2023, , 06/09/2012, Additional history exists HPV IMMUNIZATION Aged Out No longer e ligible based on patient's age to complete this topic IPV IMMUNIZATION Aged Out No longer e ligible based on patient's age to complete this topic MENINGITIS IMMUNIZATION Aged Out No l onger eligible based on patient's age to complete this topic Pneumococcal Vaccine: Pediatrics (0 to 5 Years) and At-Risk Patients (6 to 64 Years) Aged Out No longer eligible based on patient's age to complete this topic RSV MONOCLONAL ANTIBODY Aged Out No l onger eligible based on patient's age to complete this topic Procedures Procedure Name Priority Date/Time Associated Diagnosis Comments HEPATIC FUNCTION PANEL Routine 11/03/2023 9:15 AM CDT Pulmonary blastomycosis, unspecified (H24) ITRACONAZOLE AND METABOLITE Routine 11/03/2023 9:15 AM CDT Pulmonary blastomycosis, unspecified (H24) GLUCOSE BY METER Routine 05/29/2023 1:48 AM CDT BASIC METABOLIC PANEL Routine 05/28/2023 6:51 AM CDT LIPID PROFILE Routine 07/11/2022 8:45 AM CASE FOLDER [place] pulmonary blastomycosis (H) Therapeutic drug monitoring HEPATITIS [...] and its performance characteristics determined by the [facility], ??Special Chemistry Laboratory. It has not been cleared or approved by the FDA. The laboratory is regulated under CLIA as qualified to perform high-complexity testing. This test is used for clinical purposes. It should not be regarded as investigational or for research. Yunior Wayne MD LAB - BLOOD ORDERABL ES [facility] Special Drug/BGEN [address] [facility], [address] [place] [address], [facility] * Hepatic function panel (11/03/2023 9:15 AM CDT) Protein Total 6.6 6.4 - 8.3 g/dL 11/03/2023 9:36 AM CDT [facility] Albumin 4.3 3.5 - 5.2 g/dL 11/03/2023 9:36 AM CDT [facility] Bilirubin Total 1.1 <=1.2 mg/dL 11/03/2023 9:36 AM CDT [facility] Alkaline Phosphatase 78 40 - 150 U/L 11/03/2023 9:36 AM CDT [facility] Comment:Reference intervals for this test were updated on 06/27/2023 to more accurately reflect our healthy population. There may be differences in the flagging of prior results with similar values performed with this method. Interpretation of those prior results can be made in the context of the updated reference intervals. AST 17 0 - 45 U/L 11/03/2023 9:36 AM CDT [facility] Comment:Reference intervals for this test were updated on 01/23/2023 to more accurately reflect our healthy population. There may be differences in the flagging of prior results with similar values performed with this method. Interpretation of those prior results can be made in the context of the updated reference intervals. ALT 10 0 - 70 U/L 11/03/2023 9:36 AM T [facility] Comment:Reference intervals for this test were updated on 01/23/2023 to more accurately reflect our healthy population. There may be differences in the flagging of prior results with similar values performed with this method. Interpretation of those prior results can be made in the context of the updated reference intervals. Bilirubin Direct 0.23 0.00 - 0.30 mg/dL 11/03/2023 9:36 AM CDT [facility] Blood BLOOD SPECIMEN / Unknown Venipuncture / Unknown 11/03/2023 9:15 AM CDT 11/03/2023 9:15 AM CDT Yunior Wayne MD LAB - BLOOD ORDERABL ES [facility] [address] [facility] [place] [address], [facility] * Glucose by meter (05/29/2023 1:48 AM CDT) [facility] GLUCOSE BY METER POCT 98 70 - 99 mg/dL 05/29/2023 1:55 AM CDT LABORATORY POC Blood, Capillary BLOOD SPECIMEN / Unknown 05/29/2023 1:48 AM CDT 05/29/2023 1:55 AM CDT Jonh Sinclair MD [facility] Acute Care Lab [address] Lab (1st floor, no room number) [place] [address], [facility] [phone] * (ABNORMAL) Basic metabolic panel (05/28/2023 6:51 AM CDT) [facility] Sodium 137 135 - 145 mmol/L 05/28/2023 7:38 AM CDT [facility] LABORATORY Comment:Reference intervals for this test were [...] 6:51 AM CDT 05/28/2023 7:14 AM CDT Aboidun Quinonez MD LAB - BLOOD ORDERABL ES LABORATORY [facility] Acute Care Lab [address] [facility] Lab (1st floor, no room number) [place] [address], [facility] [phone] * (ABNORMAL) Lipid Profile (07/11/2022 8:45 AM CASE FOLDER) Cholesterol 203(H) <=199 mg/dL 07/11/2022 10:45 AM CASE FOLDER [facility] Triglycerides 98 <=149 mg/dL 07/11/2022 10:45 AM CASE FOLDER [facility] Direct Measure HDL 67 >=40 mg/dL 07/11/2022 10:45 AM [facility] Comment: HDL Cholesterol Reference Range: 0-2 years: No reference ranges established for patients under 2 years old ??at [facility] Laboratories for lipid analytes. 2-8 years: Greater than 45 mg/dL 18 years and older: Female: Greater than or equal to 50 mg/dL Male: ?? Greater than or equal to 40 mg/dL LDL Cholesterol Calculated 116 <=129 mg/dL 07/11/2022 10:45 AM [facility] Patient Fasting > 8hrs? Yes 07/11/2022 10:45 AM [facility] Blood STRUCTURE OF LEFT UPPER LIMB / Unknown Venipuncture / Unknown 07/11/2022 8:45 AM CASE FOLDER 07/11/2022 8:46 AM CASE FOLDER Yunior Wayne MD LAB - BLOOD ORDERABL ES [facility] [address] [facility] [place] [address], [facility] [phone] * Hepatitis C Screen Reflex to HCV RNA Quant and Genotype (03/13/2022 6:33 AM CDT) Hepatitis C Antibody Nonreactive Nonreactive 03/14/2022 9:13 AM CDT SPECIALTY CORE/PROT/EN DO Blood STRUCTURE OF LEFT UPPER LIMB / Unknown Venipuncture / Unknown 03/13/2022 6:33 AM CDT 03/13/2022 7:02 AM CDT Narrative UM SPECIALTY CORE/PROT/ENDO - 03/14/2022 9:13 AM CDT Assay performance characteristics have not been established for newborns, infants, and children. Vianey Abreu MD LAB - BLOOD ORDER JANIYA UM SPECIALTY CORE/PROT/ENDO UM Specialty Core/Prot/Endo [address] [facility], [address] [phone] * HIV Antigen Antibody Combo (03/12/2022 7:28 AM CDT) HIV Antigen Antibody Combo Nonreactive Nonreactive 03/14/2022 9:24 AM CDT [facility] SPECIALTY CORE/PROT/EN DO Comment:HIV-1 p24 Ag & HIV-1 /HIV-2 Ab Not Detected Blood STRUCTURE OF LEFT UPPER LIMB / Unknown Venipuncture / Unknown 03/12/2022 7:28 AM CDT 03/12/2022 8:00 AM CDT Vianey Abreu MD LAB - BLOOD ORDER JANIYA UM SPECIALTY CORE/PROT/ENDO Specialty Core/Prot/Endo [address] [facility], [address] [phone] * Microalbumin quantitative random urine (01/28/2011 8:13 AM CDT) Creatinine Urine 160 mg/dL [facility] Albumin Urine mg/L 2 mg/L [facility] Albumin Urine mg/g Cr 1.25 0 - 20 mg/g Cr [facility] Urine specimen (specimen) 01/28/2011 8:13 AM CDT 01/28/2011 8:14 AM CDT Irena Garcia PA-C LAB - UR INE ORDERABLES [facility] from Last 3 Months or Most Recently Relevant to Health Maintenance Advance Directives For more information, please contact: [phone] * Full Code (Latest Code Status on [...] Discussion with kiersten nt/ legal decision maker Care Teams Hedis Review Nurse Relationship Specialty Start Date End Date Ky Sears MD [facility] [address] [place] [address] PCP - General Emergency Medicine 04/05/21
--- OUTSIDE RECORDS SUMMARY | 2023-12-01 07:43 | XMS_ITS | Encounter Summary ---
Author Name Unknown Organization [facility] Address [address] [place] [address] Phone Care Team Providers Care Online Banking Specialist Name Role Phone Ky Sears MD Primary Care Provider [phone] Encounter Details Date Type Department Care Team (Late st Contact Info) Description 11/08/2023 [employer] [facility] [address] [place] [address] Crystal Cross RN Social History Tobacco Use [...] Telephone Encounter - Crystal Cross RN - 11/08/2023 10:49 AM CDT Follow up visit scheduled. documented in this encounter Plan of Treatment Not on file documented as of this encounter Visit Diagnoses Not on filedocumented in this encounter Care Teams Online Banking Specialist Relationship Specialty Start Date End Date Ky Sears MD [address] [place] [address] PCP - General 03/08/22 documented as of this encounter
--- OUTSIDE RECORDS SUMMARY | 2023-12-01 07:43 | XMS_ITS | Encounter Summary ---
Author Name Unknown Organization [facility] s[facility] Address [address] [place] [phone] Phone Care Team Providers Care Servomechanism Assembler Name Role Phone Ky Sears MD Primary Care Provider [phone] Reason for Visit * Reason Onset Date Comments Med Refill 09/01/2023 Encounter Details Date Type Department Care Team (Late st Contact Info) Description 09/01/2023 Refill [facility] [address] [place] [facility] [address] [place] [address] Evon Rosas, DANIKA Social History Tobacco Use Types Packs/Day Years Used Date Smoking Tobacco: Never Smokeless Tobacco: Never Alcohol Use Standard Drinks/Week Comments Yes 0 (1 standard drink = 0.6 oz pur e alcohol) 4-5 drinks per week Sex and Gender Information Value Date Recorded Sex Assigned at Not on file Gender Identity Not on file Sexual Orientation Not on file documented as of this encounter Plan of Treatment Not on file documented as of this encounter Visit Diagnoses Not on filedocumented in this encounter Care Teams Servomechanism Assembler Relationship Specialty Start Date End Date Ky Sears MD [address] [place] [address] PCP - General 03/08/22 documented as of this encounter
--- OUTSIDE RECORDS SUMMARY | 2023-12-01 07:43 | XMS_ITS | Clinical Summary ---
Author Name Unknown Organization [facility] Address [place], [place] [address] Care Team Providers Care Air Conditioning Manager Name Role Phone Ky Sears MD Primary Care Provider Allergies Active Allergy Reactions Criticality Noted Date Comments Allopurinol *Unknown 12/30/2009 Stomach cramping Penicillins *Unknown - Childhood Rxn 06/15/2019 Medications Medication Sig Dispensed Refills Start Date End Date Status sertraline (ZOLOFT) 50 mg tablet TK 1 T PO D 0 06/12/2019 Active ULORIC 40 mg tab TK 1 T PO QD 0 06/04/2019 Active metFORMIN (GLUCOPHAGE) 500 mg tablet Take 500 mg by mouth in the morning and 500 mg in the evening. Take with meals. 02/09/2022 Active rosuvastatin (CRESTOR) 5 mg tablet Take 5 mg by mouth once daily. 02/25/2022 Active sildenafil citrate (VIAGRA) 50 mg tablet 12/15/2021 Act mirian omeprazole (PRILOSEC) 20 mg Delayed-Release capsule Take 20 mg by mouth. 02/09/2022 Active Encounters Date Type Department Care Team Description 10/14/2023 11:20 AM [facility] - 10/14/2023 11:28 AM [facility] Emergency [facility] [place] [address] [place] [phone] Discharge Disposition: Home Self Care 10/04/2023 7:12 PM [facility] - 10/04/2023 7:42 PM [facility] - [address] [place] [address] Terrie Davenport MD Laceration of right hand without foreign body, initial encounter (Primary Dx) Discharge Disposition: Home Self Care from Last 3 Months Immunizations Name Administration Dates Next Due Influenza A (H1N1), Inactivated 09/01/2009 Influenza, IIV3 (Age >=3 years) 06/09/2012,06/02 Td, Preservative Free (age >= 7 Years) 8 Tdap 01/20/2018,03/19/2012 Family History Medical History Relation Name Comments Diabetes type II Father Relation Name Status Comments Father Mother Alive Social History Tobacco Use Types Packs/Day Years Used Date Smoking Tobacco: Never Smokeless Tobacco: Never Alcohol Use Standard Drinks/Week Comments Yes 0 (1 standard drink = 0.6 oz pur e alcohol) Sex and Gender Information Value Date Recorded Sex Assigned at Not on file Gender Identity Not on file Sexual Orientation Not on file Obstetrics History Last Filed Vital Signs Vital Sign Reading Time Taken Comments Blood Pressure 150/90 10/04/2023 7:18 PM [facility]TTS Pulse 87 10/04/2023 7:18 PM [facility]TTS Temperature 36.3 ??C (97.3 ??F) 10/04/2023 7:18 PM CS T Respiratory Rate 16 10/04/2023 7:18 PM CRTTS Oxygen Saturation 98% 10/04/2023 7:18 PM CRTTS Inhaled Oxygen Concentration - - Weight 88.5 kg (195 lb) 10/04/2023 7:18 PM CRTTS Height 182.9 cm (6') 10/04/2023 7:18 PM CRTTS Body Mass Index 26.45 10/04/2023 7:18 PM CRTT[facility] Plan of Treatment Health Maintenance Due Date Last Done Comments Depression screening for age 12+ 1980 HIV for age 15-65 12/27/1983 BMI (ht and wt on same day) for age 18+ 1986 Hepatitis C screening for ag e 18-79 1986 Colonoscopy through age 75 2013 Lipids for age 45-75 2013 Zoster (shingles) series for age 50+ (1 of 2) 2018 Influenza for age 50-64 04/14/2024 06/09/20 12, 06/02/2010, 09/01/2009 Tetanus booster 02/17/2028 02/16/2018, 01/20/2018, 03/19/2012 Tdap Completed 01/20/2018, 03/19/2012 COVID-19 vaccine series Completed 05/17/20, 06/18/2022, 06/18/2022 Pneumococcal series for age 6-64 Aged Out No longer eligible b ased on patient's age to complete this topic Care Teams Air Conditioning Manager Relationship Specialty Start Date End Date Ky Sears MD [address] [place] [address] PCP - General Internal Medicine 05/09/23
--- OUTSIDE RECORDS SUMMARY | 2023-12-01 07:43 | XMS_ITS | Clinical Summary ---
Author Name Unknown Organization [facility] Address [address] [place] [address] Phone Care Team Providers Care Academic Vice President Name Role Phone Ky Sears MD Primary Care Provider [phone] Allergies Active Allergy Reactions Criticality Noted Date Comments Allopurinol 12/30/2009 Other reaction(s): *Unknown Stomach cramping Stomach cramping Penicillins 06/17/2009 Other reaction(s): *Unknown - Childhood Rxn Airway closed up Medications Medication Sig Dispensed Refills Start Date End Date Status amLODIPine (NORVASC) 5 MG tablet Take 5 mg by mouth daily 03/29/2022 Active Febuxostat (ULORIC) 40 MG tablet Take 40 mg by mouth daily 02/13/2012 Active metFORMIN (GLUCOPHAGE) 500 MG tablet Take 500 mg by mouth 2 times daily 02/09/2022 Active sertraline (ZOLOFT) 50 MG tablet Take 50 mg by mouth daily 06/12/2019 Active aspirin 81 MG chewable tablet Chew 81 mg 1 (one) time each day Active MULTIPLE VITAMIN PO Take 1 tablet by mouth in the morning. Active itraconazole (SPORANOX) 100 MG capsule Take 2 capsules (200 mg total) by mouth in the morning and 2 capsules (200 mg total) in the evening. 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) 11/08/2023 Telephone [facility] [address] [place] [address] [place] RN 10/16/20[address] [facility] [address] [place] [address] [place] RN 09/01/2023 Refill [facility] [address] [place] [address] Evon Rosas RN from Last 3 Months Immunizations Name Administration Dates Next Due H1N1 All Forms 09/01/2009 Influenza TIV (IM) 06/09/2012,06/02/2010 Influenza, Injectable, Quadr ivalent, Preservative Free 06/18/2022,06/09/2012,06/02/2010,2009 Moderna Sars-cov-2 Vaccination 06/18/2022,2020,11/22/2020 TD Preservative Free 02/16/2018,06/17/2004 Td 02/16/2018 Tdap 01/20/2018,03/19/2012 Social History Tobacco Use Types Packs/Day Years Used Date Smoking Tobacco: Never Smokeless Tobacco: Never Tobacco Cessation:Counseling Given: Not Answered Alcohol Use Standard Drinks/Week Comments Yes 0 (1 standard drink = 0.6 oz pur e alcohol) 4-5 drinks per week Sex and Gender Information Value Date Recorded Sex Assigned at Not on file Gender Identity Not on file Sexual Orientation Not on file Last Filed Vital Signs Vital Sign Reading Time Taken Comments Blood Pressure 128/79 11/28/2023 10:41 AM CDT Pulse 75 11/28/2023 10:41 AM CDT Temperature 37.1 ??C (98.8 ??F) 11/28/2023 10:41 AM C DT Respiratory Rate - - Oxygen Saturation 98% 06/20/2023 11:09 AM BUSINESS OFFICE DIRECTOR Inhaled Oxygen Concentration - - Weight 91.6 kg (202 lb) 11/28/2023 10:41 AM CDT Height 182.9 cm (6') 06/20/2023 11:09 AM BUSINESS OFFICE DIRECTOR Body Mass Index 27.4 06/20/2023 11:09 AM BUSINESS OFFICE DIRECTOR Plan of Treatment Health Maintenance Due Date Last Done Comments Diabetic Foot Exam 1978 Ophthalmology Exam 1978 Pneumococcal PPSV23 Highest Risk Adult (1 of 3 - PCV13) 12/27/1987 COVID-19 Vaccine (4 - 2022-2 4 season) 2023 06/18/2022, 12/20/2020, 11/22/2020 Influenza Vaccine (Season Ended) 2024 06/18/2022, 06/09/2012, 06/09/2012, Additional history exists Care Teams Academic Vice President Relationship Specialty Start Date End Date Ky Sears MD [address] [place] [address] PCP - General 03/08/22
== END 2023-11-24 08:37 | disposition home or self-care (01) ==
LOC: NFLDREF 12-01 07:41
PROVIDERS: PCP Internal Medicine; Referring Provider Internal Medicine; Visit Provider Internal Medicine
DX: E11.9 Type 2 diabetes mellitus without complications (principal)
CPT/HCPCS: 80053; 80061; 82043; 82570

== ENCOUNTER 2025-02-05 08:27 | Outpatient (CLI) | payer OTHER, SELFPAY ==
--- OUTSIDE RECORDS SUMMARY | 2024-12-25 13:00 | XMS_ITS | Encounter Summary ---
Author Organization [facility] Address [address] [place] [address]. [place] [address] Care Team Providers Care Oak Tanner Name Role Phone Ky Sears MD Primary Care Provider Katherin Baez PA-C Unavailable [phone] Reason for Visit * Diagnostic Imaging Dexa (Routine) - Pending Review Specialty Diagnoses / Procedures Referred By Michelle duron Referred To Contact Radiology. Diagnoses Knee pain Procedures DX Bone Density Miguelito Manzanares MD [facility] [address] [facility] [place] [address] Phone: tel: fax: Referral ID Status Reason Start Date Expiration Date V isits Requested Visits Authorized [id number] Pending Review 12/12/2024 12/12/2025 1 1 Encounter Details Date Type Department Care Team (Late st Contact Info) Description 12/25/2024 1:00 PM CDT Ancillary Procedure [facility] [address] [place] [phone] Miguelito Manzanares MD [facility] [address] [facility] [place] [phone] Knee pain Social History Tobacco Use Types Packs/Day Years Used Date Smoking Tobacco: Never Smokeless Tobacco: Never Alcohol Use Standard Drinks/Week Comments Yes 0 (1 standard drink = 0.6 oz pur e alcohol) social to rare PHQ-2 Answer Date Recorded PHQ-2 Score 0 10/11/2024 Adolescent Education Answer Date Record ed Getting School Help Needed Not on file 05/13 Interpersonal Safety Answer Date Record ed Do you feel physically and e motionally safe where you currently live? Yes 10/11/2024 Within the past 12 months, h ave you been hit, slapped, kicked or otherwise physically hurt by someone? No 10/11/2024 Within the past 12 months, h ave you been humiliated or emotionally abused in other ways by your partner or ex-partner? No 10/11/2024 Sex and Gender Information Value Date Recorded Sex Assigned at Male 05/05/2022 1:30 PM CDT Legal Sex Male 4:18 AM LOAN OPERATIONS SPECIALIST Gender Identity Male 05/05/2022 1:30 PM CDT Sexual Orientation Straight 05/05/2022 1: 30 PM CDT Occupation Industry Job Start Date Job End Date Not on file Not on file Not on file Not on file documented as of this encounter Plan of Treatment Not on file documented as of this encounter Procedures Procedure Name Priority Date/Time Associated Diagnosis Comments DX TBS AXIAL Routine 12/25/2024 1:16 PM CDT Knee pain documented in this encounter Results * DX TBS AXIAL (12/25/2024 1:16 PM CDT) Anatomical Region Laterality Modality Dexa Bone Mineral Den sity 12/25/2024 1:16 PM CDT Impressions 2024 12:46 PM CDT IMPRESSION: Low bone density (OSTEOPENIA). T score meets the WHO criteria for low bone density (osteopenia) at one or more measured sites. The risk of osteoporotic fracture increases approximately two-fold for each standard deviation decrease in T-score. Narrative 2024 12:46 PM CDT EXAM: DX TBS AXIAL LOCATION: [facility] DATE: 12/25/2024 INDICATION: BMD screening. Baseline. DEMOGRAPHICS: Age- 54 years. Gender- Male. COMPARISON: No prior studies available on the current scanner. TECHNIQUE: Dual-energy x-ray absorptiometry (DXA) performed with routine technique. Trabecular bone score (TBS) analysis performed. FINDINGS: DXA RESULTS -Lumbar Spine: L1-L4: BMD: 1.001 g/cm2. T-score: -1.8. Z-score: -1.5. -RIGHT Hip Total: BMD: 0.884 g/cm2. T-score: -1.5. Z-score: -1.1. -RIGHT Hip Femoral neck: BMD: 0.862 g/cm2. T-score: -1.6. Z-score: -0.8. -LEFT Hip Total: BMD: 0.888 g/cm2. T-score: -1.5. Z-score: -1.1. -LEFT Hip Femoral neck: BMD: 0.876 g/cm2. T-score: -1.5. Z-score: -0.7. WHO T-SCORE CRITERIA -Normal: T score at or above -1 SD -Osteopenia: T score between -1 and -2.5 SD -Osteoporosis: T score at or below -2.5 SD The World Health Organization (WHO) criteria is applicable to perimenopausal females, postmenopausal females, and men aged 50 years or older. TBS RESULTS -Lumbar Spine L1-L4: TBS: 1.213. TBS T-score: -2.0.TBS Z-score: -0.9. The TBS is a DXA derived measurement for fracture risk assessment, and reflects the structural condition of the bone microarchitecture. It can be used to adjust WHO Fracture Risk Assessment Tool (FRAX) probability of fracture in postmenopausal women and older men. The calculated probabilities of fracture have been shown to be more accurate when computed with the TBS. FRACTURE RISK -FRAX Results: The 10 year probability of major osteoporotic fracture is 5.5%, and of hip fracture is 0.6%, based on right femoral neck BMD. -TBS-adjusted FRAX Results: The 10 year probability of major osteoporotic fracture is 7.1%, and of hip fracture is 0.8%. RECOMMENDATIONS Consider treatment if major osteoporotic fracture score is greater than or equal to 20%, and if the hip fracture score is greater than or equal to 3%. Procedure Note Verna Betancur PA - 2024 EXAM: DX TBS AXIAL LOCATION: [facility] DATE: 12/25/2024 INDICATION: BMD screening. Baseline. DEMOGRAPHICS: Age- 54 years. Gender- Male. COMPARISON: No prior studies available on the current scanner. TECHNIQUE: Dual-energy x-ray absorptiometry (DXA) performed with routinetechnique. Trabecular bone score (TBS) analysis performed. FINDINGS: DXA RESULTS -Lumbar Spine: L1-L4: BMD: 1.001 g/cm2. T-score: -1.8. Z-score: -1.5. -RIGHT Hip Total: BMD: 0.884 g/cm2. T-score: -1.5. Z-score: -1.1. -RIGHT Hip Femoral neck: BMD: 0.862 g/cm2. T-score: -1.6. Z-score: -0.8. -LEFT Hip Total: BMD: 0.888 g/cm2. T-score: -1.5. Z-score: -1.1. -LEFT Hip Femoral neck: BMD: 0.876 g/cm2. T-score: -1.5. Z-score: -0.7. WHO T-SCORE CRITERIA -Normal: T score at or above -1 SD -Osteopenia: T score between -1 and -2.5 SD -Osteoporosis: T score at or below -2.5 SD The World Health Organization (WHO) criteria is applicable toperimenopausal females, postmenopausal females, and men aged 50 years orolder. TBS RESULTS -Lumbar Spine L1-L4: TBS: 1.213. TBS T-score: -2.0.TBS Z-score: -0.9. The TBS is a DXA derived measurement for fracture risk assessment, andreflects the structural condition of the bone microarchitecture. It can beused to adjust WHO Fracture Risk Assessment Tool (FRAX) probability offracture in postmenopausal women and older men. The calculated probabilities of fracture have been shown to bemore accurate when computed with the TBS. FRACTURE RISK -FRAX Results: The 10 year probability of major osteoporotic fracture is5.5%, and of hip fracture is 0.6%, based on right femoral neck BMD. -TBS-adjusted FRAX Results: The 10 year probability of major osteoporoticfracture is 7.1%, and of hip fracture is 0.8%. RECOMMENDATIONS Consider treatment if major osteoporotic fracture score is greater than orequal to 20%, and if the hip fracture score is greater than or equal to3%. IMPRESSION: Low bone density (OSTEOPENIA). T score meets the WHO criteriafor low bone density (osteopenia) at one or more measured sites. The riskof osteoporotic fracture increases approximately two-fold for eachstandard deviation decrease in T-score. Miguelito Manzanares MD IMG DEXA ORDERABLES Final Result documented in this encounter Visit Diagnoses Diagnosis Knee pain Pain in joint, lower leg documented in this encounter Care Teams Oak Tanner Relationship Specialty Start Date End Date Ky Sears MD [facility] [address] [place] [address] PCP - General Emergency Medicine 04/05/21 Katherin Baez, LOUISE [address] [place] [address] Assigned PCP 11/03/24 documented as of this encounter
[2025-02-05 14:09] LABS: Basophils Absolute Auto 0.03 K/uL (0.00-0.30); Basophils Percent Auto 0.6 % (0.0-3.0); Eosinophils Absolute Auto 0.27 K/uL (0.00-0.50); Hematocrit 46.1 % (37.0-53.0); Hemoglobin* 15.7 gm/dL (13.5-17.5); Lymphocytes Absolute Auto 1.42 K/uL (0.90-2.90); Lymphocytes Percent Auto 26.3 % (20-44); Mean Corpuscular HGB Conc 34 gm/dL (32-36); Mean Corpuscular Hemoglobin 30 pg (26-34); Mean Corpuscular Volume 87 fL (80-100); Monocytes Percent Auto 8.7 % (0.0-11.0); Neutrophils Absolute Auto 3.21 K/uL (1.7-7.0); Neutrophils Percent Auto 59.4 % (42.0-72.0); Platelet Count* 216 K/uL (140-440); Red Blood Count 5.33 m/uL (4.30-5.90)
[2025-02-05 14:13] LABS: Slide Review Reflex No
[2025-02-05 14:31] LABS: Albumin* 4.9 g/dL (3.3-5.0); Chloride* 99 mmol/L (96-114); Potassium* 4.3 mmol/L (3.6-5.1); Sodium* 138 mmol/L (135-149)
[2025-02-05 14:33] LABS: Blood Urea Nitrogen* 19 mg/dL (7-30); Estimated Glomerular Filt Rate 88 ml/min
[2025-02-05 14:34] LABS: Alanine Aminotransferase* 25 U/L (4-50); Alkaline Phosphatase* 59 U/L (40-150); Anion Gap 11 mEq/L (7-15); Aspartate Amino Transferase* 31 U/L (12-35); Bilirubin Total* 1.4 mg/dL (0.1-1.5); Calcium* 9.8 mg/dL (8.4-10.6); Carbon Dioxide* 28 mmol/L (20-32); Glucose* 97 mg/dL (60-115); Phosphorus* 3.4 mg/dL (2.5-4.5); Total Protein* 7.7 g/dL (6.0-8.3)
[2025-02-05 14:35] LABS: Magnesium* 2.2 mg/dL (1.5-2.6)
[2025-02-05 14:37] LABS: Vitamin D 25 Hydroxy* 57 ng/mL (30-80)
[2025-02-05 14:49] LABS: Erythrocyte SedimentationRate* 2 mm/hr (2-15)
[2025-02-05 14:50] LABS: C Reactive Protein* < 0.5 mg/dL (0.5-1.0)
[2025-02-05 18:31] LABS: PTH Intact* 30.5 pg/mL (14.2-75.2)
--- OUTSIDE RECORDS SUMMARY | 2025-02-06 00:21 | XMS_ITS | Clinical Summary ---
Author Organization [facility] Address [address] [place] [address] Phone Care Team Providers Care Pop Singer Name Role Phone Ky Sears MD Primary Care Provider [phone] Allergies Active Allergy Reactions Criticality Noted Date Comments Allopurinol 12/30/2009 Other reaction(s): *Unknown Stomach cramping Stomach cramping Penicillins 06/17/2009 Other reaction(s): *Unknown - Childhood Rxn Airway closed up Medications amLODIPine (NORVASC) 5 MG tablet Take 5 [...] tablet by mouth in the morning. Active Active Problems Problem Noted Date Diagnosed Date Acute bronchitis 03/21/2023 03/21/2023 Chronic sinusitis 03/21/2023 03/21/2023 Diabetes mellitus 03/21/2023 03/21/2023 Disorder of nasal sinus 03/21/2023 03/21/20 Infective pneumonia 03/07/2022 Hypertensive disorder 11/16/2010 Hyperlipidemia 06/13/2010 Gout 08/29/2009 Immunizations Immunization Administration Dates Next Due H1N1 All Forms [...] Recorded Sex Assigned at Not on file Legal Sex Male 9:15 AM MDT Gender Identity Not on file Sexual Orientation Not on file Last Filed Vital Signs Vital Sign Reading Time Taken Comments Blood Pressure 128/79 11/28/2023 10:41 AM CDT Pulse 75 11/28/2023 10:41 AM CDT Temperature 37.1 C (98.8 F) 11/28/2023 10:41 AM CDT Respiratory Rate - - Oxygen Saturation 98% 06/20/2023 11:09 AM ORNAMENT MAKER HAND Inhaled Oxygen Concentration - - Weight 91.6 kg (202 lb) 11/28/2023 10:41 AM CDT Height 182.9 cm (6') 06/20/2023 11:09 AM ORNAMENT MAKER HAND Body Mass Index 27.4 06/20/2023 11:09 AM ORNAMENT MAKER HAND Plan of Treatment Health Maintenance Due Date Last Done Comments Diabetic Foot Exam 1978 Ophthalmology Exam 1978 Pneumococcal PPSV23 Highest Risk Adult (1 of 3 - PCV13) 12/27/1987 COVID-19 Vaccine (4 - 2023-2 5 season) 2024 06/18/2022, 12/20/2020, 11/22/2020 Influenza Vaccine (Season Ended) 2025 06/18/2022, 06/09/2012, 06/09/2012, Additional history exists Insurance PM INTERFACED INSURANCE PM INTERFACED INSURANCE PM INTERFACED INSURANCE Care Teams Pop Singer Relationship Specialty Start Date End Date Ky Sears MD [address] [place] [address] PCP - General 03/08/22
--- OUTSIDE RECORDS SUMMARY | 2025-02-06 00:21 | XMS_ITS | Encounter Summary ---
Author Organization [facility] Address [address] [place] [address]. [place] [address] Care Team Providers Care Biological Engineer Name Role Phone Ky Sears MD Primary Care Provider Jose Slaughter MD Unavailable + Katherin Baez PA-C Unavailable [phone] Encounter Details Date Type Department Care Team (Late st Contact Info) Description 07/11/2022 Orders Only Health [facility] [place] [address] Audrey Peña pulmonary blastomycosis; Therapeutic drug monitoring Social History Tobacco Use [...] PM CDT Legal Sex Male 4:18 AM AUTOMATION TESTER Gender Identity Male 05/05/2022 1:30 PM CDT Sexual Orientation Straight 05/05/2022 1: 30 PM CDT Occupation Industry Job Start Date Job End Date Not on file Not on file Not on file Not on file COVID-19 Exposure Response Date Recorded In the last 10 days, have yo u been in contact with someone who was confirmed or suspected to have Coronavirus/COVID-19? No / Unsure 07/11/2022 8:14 AM AUTOMATION TESTER documented as of this encounter Plan of Treatment Not on file documented as of this encounter Procedures Procedure Name Priority Date/Time Associated Diagnosis Comments VORICONAZOLE LEVEL Routine 07/11/2022 8: 45 AM AUTOMATION TESTER [place] pulmonary blastomycosis Therapeutic drug monitoring LIPID PROFILE Routine 07/11/2022 8:45 AM AUTOMATION TESTER [place] pulmonary blastomycosis Therapeutic drug monitoring HEMOGLOBIN A1C Routine 07/11/2022 8:45 AM AUTOMATION TESTER [place] pulmonary blastomycosis Therapeutic drug monitoring documented in this encounter Results * (ABNORMAL) Lipid Profile (07/11/2022 8:45 AM AUTOMATION TESTER) Cholesterol 203(H) <=199 mg/dL 07/11/2022 10:45 AM [facility] Triglycerides 98 <=149 mg/dL 07/11/2022 10:45 AM [facility] Direct Measure HDL 67 >=40 mg/dL 07/11/2022 10:45 AM [facility] Comment: HDL Cholesterol Reference Range: 0-2 years: No reference ranges established for patients under 2 years old at [facility] for lipid analytes. 2-8 years: Greater than 45 mg/dL 18 years and older: Female: Greater than or equal to 50 mg/dL Male: Greater than or equal to 40 mg/dL LDL Cholesterol Calculated 116 <=129 mg/dL 07/11/2022 10:45 AM [facility] Patient Fasting > 8hrs? Yes 07/11/2022 10:45 AM [facility] Blood STRUCTURE OF LEFT UPPER LIMB / Unknown Venipuncture / Unknown 07/11/2022 8:45 AM AUTOMATION TESTER 07/11/2022 8:46 AM AUTOMATION TESTER us Yunior Wayne MD LAB - BLOOD ORDERABLES Final Re sult [facility] [address] [place], [place] [address], [facility] [phone] * Hemoglobin A1c (07/11/2022 8:45 AM AUTOMATION TESTER) Hemoglobin A1C 5.4 <5.7 % 07/11/2022 11:45 AM AUTOMATION TESTER [facility] Comment: Normal <5.7% Prediabetes 5.7-6.4% Diabetes 6.5% or higher Note: Adopted from ADA consensus guidelines. Blood STRUCTURE OF LEFT UPPER LIMB / Unknown Venipuncture / Unknown 07/11/2022 8:45 AM AUTOMATION TESTER 07/11/2022 8:46 AM AUTOMATION TESTER Yunior Wayne MD LAB - BLOOD ORDERABLES Final Re sult [facility] [address] [place] [address], [facility] [phone] * (ABNORMAL) Voriconazole Level (07/11/2022 8:45 AM AUTOMATION TESTER) Voriconazole <0.1(L) 1.0 - 5.5 ug/mL 07/12/2022 1:16 PM AUTOMATION TESTER [facility] Blood STRUCTURE OF LEFT UPPER LIMB / Unknown Venipuncture / Unknown 07/11/2022 8:45 AM AUTOMATION TESTER 07/11/2022 8:46 AM AUTOMATION TESTER us Yunior Wayne MD LAB - BLOOD ORDERABLES Final Re sult [facility] [address] [facility] [place] [address], [facility] [phone] documented in this encounter Visit Diagnoses Diagnosis [place] pulmonary blastomycosis Blastomycosis Therapeutic drug monitoring Encounter for therapeutic drug monitoring documented in this encounter Care Teams Biological Engineer Relationship Specialty Start Date End Date Ky Sears MD [facility] [address] [place] [address] PCP - General Emergency Medicine 04/05/21 Jose Slaughter MD [address] [place] [address] Assigned Musculoskeletal Provider 04/11/21 10/14/22 Katherin Baez PA-C [address] [place] [address] Assigned PCP 11/03/24 documented as of this encounter
--- OUTSIDE RECORDS SUMMARY | 2025-02-06 00:21 | XMS_ITS | Encounter Summary ---
Author Organization [facility] Address [address] [place] [address] Care Team Providers Care Brewmaster Name Role Phone Ky Sears MD Primary Care Provider Katherin Baez PA-C Unavailable [phone] Encounter Details Date Type Department Care Team (Latest Contact Info) Description 12/25/2024 Travel Social History Tobacco Use Types Packs/Day [...] PM CDT Legal Sex Male 4:18 AM CANDY DECORATOR Gender Identity Male 05/05/2022 1:30 PM CDT Sexual Orientation Straight 05/05/2022 1: 30 PM CDT Occupation Industry Job Start Date Job End Date Not on file Not on file Not on file Not on file documented as of this encounter Plan of Treatment Not on file documented as of this encounter Visit Diagnoses Not on filedocumented in this encounter Care Teams Brewmaster Relationship Specialty Start Date End Date Ky Sears MD [facility] [address] [place] [address] PCP - General Emergency Medicine 04/05/21 Katherin Baez PA-C [address] [place] [address] Assigned PCP 11/03/24 documented as of this encounter
--- OUTSIDE RECORDS SUMMARY | 2025-02-06 00:21 | XMS_ITS | Clinical Summary ---
Author Organization [email or web address] Address [address] [place] [address] Care Team Providers Care Cyber Special Agent Name Role Phone Ky Sears MD Primary Care Provider Allergies Active Allergy Reactions Criticality Noted Date Comments Allopurinol *Unknown 12/30/2009 Stomach cramping Penicillins *Unknown - Childhood Rxn 06/15/2019 Medications sertraline (ZOLOFT) 50 mg tablet TK 1 [...] sildenafil citrate (VIAGRA) 50 mg tablet 12/15/2021 Active omeprazole (PRILOSEC) 20 mg Delayed-Release capsule Take 20 mg by mouth. 02/09/2022 Active Immunizations Immunization Administration Dates Next Due Influenza A (H1N1), [...] at Not on file Legal Sex Male 7:04 PM CALENDER RUNNER Gender Identity Not on file Sexual Orientation Not on file Obstetrics History Last Filed Vital Signs Vital Sign Reading Time Taken Comments Blood Pressure 150/90 10/04/2023 7:18 PM CALENDER RUNNER Pulse 87 10/04/2023 7:18 PM CALENDER RUNNER Temperature 36.3 C (97.3 F) 10/04/2023 7:18 PM CALENDER RUNNER Respiratory Rate 16 10/04/2023 7:18 PM CALENDER RUNNER Oxygen Saturation 98% 10/04/2023 7:18 PM CALENDER RUNNER Inhaled Oxygen Concentration - - Weight 88.5 kg (195 lb) 10/04/2023 7:18 PM CALENDER RUNNER Height 182.9 cm (6') 10/04/2023 7:18 PM CALENDER RUNNER Body Mass Index 26.45 10/04/2023 7:18 PM CALENDER RUNNER Plan of Treatment Health Maintenance Due Date Last Done Comments Depression screening for age 12+ 1980 HIV for age 15-65 12/27/1983 BMI (ht and wt on same day) for age 18+ 1986 Hepatitis C screening for age 18-79 1986 Hepatitis B series for 19+ ( 1 of 3 - 19+ 3-dose series) 12/27/1987 Colonoscopy through age 75 2013 Lipids for age 45-75 2013 Pneumococcal series for age 50+ (1 of 1 - PCV) 2018 Zoster (shingles) series for age 50+ (1 of 2) 2018 COVID-19 vaccine series ( season) 2024 05/17/2023, 06/18/2022, 06/18/2022 Influenza Vaccine (Season Ended) 2025 06/09/20 12, 06/02/2010 Tetanus booster 02/17/2028 02/16/2018, 04/2018, 03/19/2012 Tdap Completed 01/20/2018, 03/19/2012 Insurance [facility] Care Teams Cyber Special Agent Relationship Specialty Start Date End Date Ky Sears MD [address] [place] [address] PCP - General Internal Medicine 05/09/23
--- OUTSIDE RECORDS SUMMARY | 2025-02-06 00:21 | XMS_ITS | Clinical Summary ---
Author Organization [facility] Address [address] [place] [address] Care Team Providers Care Skill Labor Name Role Phone Ky Sears MD Primary Care Provider Katherin Baez PA-C Unavailable [phone] Allergies Active Allergy Reactions Criticality Noted Date Comments Allopurinol Unknown 12/30/2009 Stomach cramping Other reaction(s): *Unknown Stomach cramping Stomach cramping Penicillin V 06/17/2009 Airway closed up Has tolerated ceftriaxone Penicillins Other (See Comments) 06/17/2009 Other reaction(s): *Unknown - Childhood Rxn Airway closed up Medications febuxostat (ULORIC) 40 MG TABSIndications: Gout Take 1 tablet by mouth daily. 30 tablet 0 02/13/2012 Active sertraline (ZOLOFT) 50 MG tablet Take 50 mg by mouth daily 03/22/2021 Active [place]-3 Fatty Acids (FISH OIL PO) Take 1,000 mg by mouth daily (with lunch) Active Multiple Vitamin (ONE-A-DAY MENS PO) Take 1 tablet by mouth daily (with lunch) Active metFORMIN (GLUCOPHAGE) 500 MG tablet Take 500 mg by mouth 2 times daily (with meals) Active amLODIPine (NORVASC) 5 MG tabletIndication s:Pneumonia of both lungs due to infectious organism, unspecified part of lung Take 1 tablet (5 mg) by mouth daily 30 tablet 6 03/29/2022 Active aspirin (ASA) 81 MG chewable tablet Take 81 mg by mouth. Active blood glucose (NO BRAND SPECIFIED) test strip 05/30/2024 Active blood glucose monitoring (SOFTCLIX) lancets 05/30/2024 Active omeprazole (PRILOSEC) [address] capsule Take 20 mg by mouth daily. 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 Gender Identity Male 05/05/2022 1:30 PM CDT Sexual Orientation Straight 05/05/2022 1: 30 PM CDT Occupation Industry Job Start Date Job End Date Not on file Not on file Not on file Not on file Last Filed Vital Signs Vital Sign Reading Time Taken Comments Blood Pressure 128/74 10/11/2024 9:52 AM ASSISTANT FINANCIAL ACCOUNTANT Pulse 93 10/11/2024 9:52 AM ASSISTANT FINANCIAL ACCOUNTANT Temperature 36.6 C (97.8 F) 10/11/2024 9:52 AM ASSISTANT FINANCIAL ACCOUNTANT Respiratory Rate 18 10/11/2024 9:52 AM ASSISTANT FINANCIAL ACCOUNTANT Oxygen Saturation 98% 10/11/2024 9:52 AM ASSISTANT FINANCIAL ACCOUNTANT Inhaled Oxygen Concentration - - Weight 96.7 kg (213 lb 3.2 oz) 10/11/2024 9:52 A M ASSISTANT FINANCIAL ACCOUNTANT Height 182.9 cm (6') 10/11/2024 9:52 AM ASSISTANT FINANCIAL ACCOUNTANT Body Mass Index 28.92 10/11/2024 9:52 AM ASSISTANT FINANCIAL ACCOUNTANT Plan of Treatment Health Maintenance Due Date Last Done Comments ANNUAL REVIEW OF HM ORDERS 1968 CT COLONOGRAPHY 1968 FIT 1968 FLEX SIG 1968 sDNA (Cologuard) 1968 YEARLY PREVENTIVE VISIT 12/30/2010 12/30/2009 MICROALBUMIN 01/29/2012 01/28/2011, 12/30/2009 ZOSTER VACCINE (1 of 2) 2018 HEPATITIS B VACCINE (2 of 2 - CpG 2-dose series) 06/14/2023 05/17/2023 LIPID 07/11/2023 07/11/2022, 01/12, 12/30/2009 BMP 06/04/2025 06/04/2024, 02/12, 05/28/2023, Additional history exists DIABETES SCREENING 06/04/2027 06/04/2024, 0 03/06/2024, 05/29/2023, Additional history exists DTAP/TDAP/TD VACCINE (4 - Td or Tdap) 02/17/2028 02/16/2018, 01/20/2018, 03/19/2012, Additional history exists COLONOSCOPY 2028 2018 COLORECTAL CANCER SCREENING 2028 ADVANCE CARE PLANNING 10/11/2029 10/11/2024 HIV SCREENING Completed 03/12/2022 HEPATITIS C SCREENING Completed 03/13/2022 COVID-19 VACCINE Completed 07/16/2024, 11/2022, 06/18/2022, Additional history exists INFLUENZA VACCINE Completed 07/16/2024, , 06/18/2022, Additional history exists PNEUMOCOCCAL VACCINE 50+ YEARS Completed 07/16/2024 PHQ-2 (once per calendar year) Completed 10/11/2024, 04/08/2021 HPV VACCINE Aged Out No longer eligi ble based on patient's age to complete this topic MENINGITIS VACCINE Aged Out No longer eligible based on patient's age to complete this topic Procedures Procedure Name Priority Date/Time Associated Diagnosis Comments DX TBS AXIAL Routine 12/25/2024 1:16 PM CDT Knee pain COMPREHENSIVE METABOLIC PANEL Routine 06/04/2024 3:55 PM CDT [place] pulmonary blastomycosis LIPID PROFILE Routine 07/11/2022 8:45 AM ASSISTANT FINANCIAL ACCOUNTANT [place] pulmonary blastomycosis Therapeutic drug monitoring HEPATITIS C SCREEN REFLEX TO HCV RNA QUANT AND GENOTYPE Routine 03/13/2022 6:33 AM CDT HIV ANTIGEN ANTIBODY COMBO Add-On 03/12/2022 7:28 AM CDT COLONOSCOPY - HIM SCAN Routine 2018 ALBUMIN RANDOM URINE QUANTITATIVE Routine 01/28/2011 8:13 AM CDT Hypertension goal BP (blood pressure) < 140/90 from Last 3 Months or Most Recently Relevant to Health Maintenance Results * DX TBS AXIAL (12/25/2024 1:16 [...] PM CDT EXAM: DX TBS AXIAL LOCATION: [facility] DATE: 12/25/2024 INDICATION: BMD screening. Baseline. DEMOGRAPHICS: [...] - 2024 EXAM: DX TBS AXIAL LOCATION: [facility] DATE: 12/25/2024 INDICATION: BMD screening. Baseline. DEMOGRAPHICS: [...] deviation decrease in T-score. Miguelito Manzanares MD [facility] [place] Final Result * (ABNORMAL) Comprehensive metabolic panel (06/04/2024 3:55 PM CDT) [facility] Sodium 137 135 - 145 mmol/L 06/04/2024 4:15 PM CDT [facility] Potassium 4.2 3.4 - 5.3 mmol/L 06/04/2024 4:15 PM CDT [facility] Carbon Dioxide (CO2) 24 22 - 29 mmol/L 06/04/2024 4:15 PM CDT [facility] Anion Gap 13 7 - 15 mmol/L 06/04/2024 4:15 PM CDT [facility] Urea Nitrogen 15.9 6.0 - 20.0 mg/dL 06/04/2024 4:15 PM T [facility] Creatinine 0.84 0.67 - 1.17 mg/dL 06/04/2024 4:15 PM T [facility] GFR Estimate >90 >60 mL/min/1.7 3m2 06/04/2024 4:15 PM T [facility] Comment:eGFR calculated usin 2020 CKD-EPI equation. Calcium 9.7 8.8 - 10.4 mg/dL 06/04/2024 4:15 PM T [facility] Comment:Reference intervals for this test were updated on 02/27/2024 to reflect our healthy population more accurately. There may be differences in the flagging of prior results with similar values performed with this method. Those prior results can be interpreted in the context of the updated reference intervals. Chloride 100 98 - 107 mmol/L 06/04/2024 4:15 PM [facility] Glucose 137(H) 70 - 99 mg/dL 06/04/2024 4:15 PM [facility] Alkaline Phosphatase 64 40 - 150 U/L 06/04/2024 4:15 PM T [facility] AST 20 0 - 45 U/L 06/04/2024 4:15 PM [facility] ALT 19 0 - 70 U/L 06/04/2024 4:15 PM [facility] Protein Total 7.1 6.4 - 8.3 g/dL 06/04/2024 4:15 PM T [facility] Albumin 4.8 3.5 - 5.2 g/dL 06/04/2024 4:15 PM T [facility] Bilirubin Total 0.7 <=1.2 mg/dL 06/04/2024 4:15 PM T [facility] Blood BLOOD SPECIMEN / Unknown Venipuncture / Unknown 06/04/2024 3:55 PM CDT 06/04/2024 3:55 PM CDT us Yunior Wayne MD LAB - BLOOD ORDERABLES Final Re sult [facility] [address] * (ABNORMAL) Lipid Profile (07/11/2022 8:45 AM ASSISTANT FINANCIAL ACCOUNTANT) Cholesterol 203(H) <=199 mg/dL 07/11/2022 10:45 AM [facility] Triglycerides 98 <=149 mg/dL 07/11/2022 10:45 AM [facility] Direct Measure HDL 67 >=40 mg/dL 07/11/2022 10:45 AM [facility] Comment: HDL Cholesterol Reference Range: 0-2 years: No reference ranges established for patients under 2 years old at [facility] for lipid analytes. 2-8 years: Greater than 45 mg/dL 18 years and older: Female: Greater than or equal to 50 mg/dL Male: Greater than or equal to 40 mg/dL LDL Cholesterol Calculated 116 <=129 mg/dL 07/11/2022 10:45 AM [facility] Patient Fasting > 8hrs? Yes 07/11/2022 10:45 AM [facility] Blood STRUCTURE OF LEFT UPPER LIMB / Unknown Venipuncture / Unknown 07/11/2022 8:45 AM ASSISTANT FINANCIAL ACCOUNTANT 07/11/2022 8:46 AM ASSISTANT FINANCIAL ACCOUNTANT Yunior Wayne MD LAB - BLOOD ORDERABLES Final Re sult [facility] [address] [facility] [address] [phone] * Hepatitis C Screen Reflex to HCV [...] been established for newborns, infants, and children. us Vianey Abreu MD LAB - BLOOD ORDERABLES Fi nal Result [facility]Endo [address] [facility] [address], [address] [phone] * HIV Antigen Antibody Combo (03/12/2022 7:28 AM CDT) HIV Antigen Antibody Combo Nonreactive Nonreactive 03/14/2022 9:24 AM CDT [facility] DO Comment:HIV-1 p24 Ag & HIV-1 /HIV-2 Ab Not Detected Blood STRUCTURE OF LEFT UPPER LIMB / Unknown Venipuncture / Unknown 03/12/2022 7:28 AM CDT 03/12/2022 8:00 AM CDT us Vianey Abreu MD LAB - BLOOD ORDERABLES Fi nal Result [facility]PROT/ENDO Specialty Core/Prot/Endo [address] [facility], [address] [phone] * Colonoscopy - HIM Scan (2018) Narrative Satish Oglesby - 2018 See encounter dated - 10/11/2024 us Patient Reported PROCEDURES Final Result * Microalbumin quantitative random urine (01/28/2011 8:13 AM CDT) Creatinine Urine 160 mg/dL [facility] Albumin Urine mg/L 2 mg/L [facility] Albumin Urine mg/g Cr 1.25 0 - 20 mg/g Cr [facility] Urine specimen (specimen) 01/28/2011 8:13 AM CDT 01/28/2011 8:14 AM CDT us Irena Garcia PA-C LAB - URINE ALINA HAINES Final Result [facility] [address] [address] from Last 3 Months or Most Recently Relevant to Health Maintenance Insurance [facility] Advance Directives For more information, please contact: [phone] * Full Code (Latest Code Status on File) Date Activated Date Inactivated Comments 05/25/2023 7:28 PM 05/29/2023 4:54 PM All basic and advanced life-sustaining interventions are performed as appropriate Question Answer Comments Code status determined by: Discussion with saidae nt/ legal decision maker * Full Code Date Activated Date Inactivated Comments 03/07/2022 11:08 PM 03/28/2022 7:54 PM All basic a nd advanced life-sustaining interventions are performed as appropriate Question Answer Comments Code status determined by: Discussion with kiersten nt/ legal decision maker Care Teams Skill Labor Relationship Specialty Start Date End Date Ky Sears MD [facility] [address] [place] [address] PCP - General Emergency Medicine 04/05/21 Katherin Baez PA-C [address] [place] [address] Assigned PCP 11/03/24
--- OUTSIDE RECORDS SUMMARY | 2025-02-06 00:21 | XMS_ITS | Encounter Summary ---
Author Organization [facility] Address [address] [place] [address]. [place] [address] Care Team Providers Care Hairspring Assembler Name Role Phone Ky Sears MD Primary Care Provider Jose Slaughter MD Unavailable + Katherin Baez PA-C Unavailable [phone] Encounter Details Date Type Department Care Team (Late st Contact Info) Description 04/19/2022 [facility] [address] [place] [address] Yunior Wayne MD [facility] [address] [facility] 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 Blood STRUCTURE OF LEFT UPPER LIMB / Unknown Venipuncture / Unknown 04/20/2022 8:54 AM CDT 04/20/2022 8:55 AM CDT Yunior Wayne MD LAB - BLOOD ORDERABLES Final Re sult [facility] [address] [place] [address], [facility] [phone] * Creatinine (04/20/2022 8:54 AM CDT) Creatinine 0.81 0.70 - 1.30 mg/dL 04/20/2022 9:[address] [facility] GFR Estimate >90 >60 mL/min/1.7 3m2 04/20/2022 9:[address] [facility] Comment:Effective July 152020 eGFRcr in adults is calculated using the 2020 CKD-EPI creatinine equation which includes age and gender (Ananya et al., [place], DOI: 10.1056/QPHHrb1528736) Blood STRUCTURE OF LEFT UPPER LIMB / Unknown Venipuncture / Unknown 04/20/2022 8:54 AM CDT 04/20/2022 8:55 AM CDT Yunior Wayne MD LAB - BLOOD ORDERABLES Final Re sult Performing Organization Address City/[facility]/ZIP Co de Phone Number [facility] [address] [place] [address] [address] [place] [address], [facility] [phone] * (ABNORMAL) Erythrocyte sedimentation rate auto (04/20/2022 8:54 AM CDT) Erythrocyte Sedimentation Rate 23(H) 0 - 15 mm/hr 04/20/2022 9:[address] [facility] Blood STRUCTURE OF LEFT UPPER LIMB / Unknown Venipuncture / Unknown 04/20/2022 8:54 AM CDT 04/20/2022 8:55 AM CDT us Yunior Wayne MD LAB - BLOOD ORDERABLES Final Re sult Performing Organization Address City/[facility]/ZIP Co de Phone Number [facility] [address] [place] [address] [address] [place] [address], [facility] [phone] * CRP inflammation (04/20/2022 8:54 AM CDT) CRP 0.4 0.0 - <0.8 mg/dL 04/20/2022 9:[address] [facility] Blood STRUCTURE OF LEFT UPPER LIMB / Unknown Venipuncture / Unknown 04/20/2022 8:54 AM CDT 04/20/2022 8:55 AM CDT us Yunior Wayne MD LAB - BLOOD ORDERABLES Final Re sult [facility] [address] [facility] [place] [address], [facility] [phone] documented in this encounter Visit Diagnoses Diagnosis Blastomycosis- Primary documented in this encounter Care Teams Hairspring Assembler Relationship Specialty Start Date End Date Ky Sears MD [facility] [address] [place] [address] PCP - General Emergency Medicine 04/05/21 Jose Slaughter MD [address] [place] [address] Assigned Musculoskeletal Provider 04/11/21 10/14/22 Katherin Baez PA-C [address] [place] [address] Assigned PCP 11/03/24 documented as of this encounter
[2025-02-07 02:27] LABS: Calcium/Creatinine Ratio Urine 160 mg/g (20-240); Hours Collected 24 hr; Total Volume 2075 mL
[2025-02-07 10:12] LABS: Sex Hormone Binding Globulin 31 nmol/L (19-76); Testosterone, Adult Male 314 ng/dL (300-890); Testosterone, Free Calculation 59 pg/mL (47-244); Testosterone, Percentage Free 1.9 % (1.6-2.9)
== END 2025-02-05 08:28 | disposition home or self-care (01) ==
LOC: NPINS 08:27
PROVIDERS: PCP Internal Medicine; Visit Provider Internal Medicine
DX: M85.80 Other specified disorders of bone density and structure, unspecified site (principal); R53.83 Other fatigue; Z12.5 Encounter for screening for malignant neoplasm of prostate; T14.8XXA Other injury of unspecified body region, initial encounter
CPT/HCPCS: 80053; 80061; 82043; 82306; 82340; 82530; 82570; 83735; 83970; 84100; 84270; 84402; 84403; 84443; 85025; 85651; 86140; G0103